=== PATIENT | male | born 1940 | race Caucasian/White ===

== ENCOUNTER 2019-08-07 16:35 | Inpatient (IN) | payer MEDICARE ==
[2019-08-07] MEDS ORDERED: ASPIRIN 81 MG PO STA (16:45)
[2019-08-07] MEDS ORDERED: NITROGLYCERIN OINT 1 INCH/GM PACKET TOPICAL STA (16:45)
--- NOTE | 2019-08-07 16:53 | ED ---
General Adult HPI - General Chief complaint: Chest Pain Stated complaint: chest pain Time Seen by Provider: 08/07/19 16:40 Source: patient, EMS, RN notes reviewed Mode of arrival: EMS Limitations: no limitations - History of Present Illness Initial comments: Patient is a pleasant 78-year-old male presenting to the emergency Department with complaints of chest discomfort. Onset of symptoms was around a week ago. Symptoms have been somewhat worsening since that time. Patient was sweaty today prior to arrival. Discomfort is worse with inspiration. No associated dyspnea or nausea. Patient did see his doctor beginning of the week who had concern for pleurisy. Patient has been fatigued. - Related Data Allergies Allergy/AdvReac Type Severity Reaction Status Date / Time No Known Allergies Allergy Verified 08/07/19 16:46 Review of Systems ROS Statement: Those systems with pertinent positive or pertinent negative responses have been documented in the HPI. ROS Other: All systems not noted in ROS Statement are negative. Constitutional: Denies: fever Eyes: Denies: eye pain ENT: Denies: ear pain Respiratory: Denies: cough, dyspnea Cardiovascular: Reports: chest pain. Denies: palpitations Endocrine: Reports: fatigue Gastrointestinal: Denies: abdominal pain Genitourinary: Denies: urgency Musculoskeletal: Denies: back pain Skin: Denies: rash Neurological: Denies: weakness Past Medical History Past Medical History: Diabetes Mellitus, GERD/Reflux, Hyperlipidemia History of Any Multi-Drug Resistant Organisms: None Reported Past Surgical History: Appendectomy, Tonsillectomy Additional Past Surgical History / Comment(s): carotid artery arthroscopy Past Psychological History: No Psychological Hx Reported Smoking Status: Never smoker Past Alcohol Use History: None Reported Past Drug Use History: None Reported General Exam Limitations: no limitations General appearance: alert, in no apparent distress Head exam: Present: normocephalic Eye exam: Present: normal appearance, PERRL Neck exam: Present: normal inspection Respiratory exam: Present: normal lung sounds bilaterally. Absent: chest wall tenderness Cardiovascular Exam: Present: regular rate, normal rhythm, systolic murmur Expanded Peripheral pulses: 2+: Radial (R), Radial (L), Posterior Tibialis (R), Posterior Tibialis (L), Dorsalis Pedis (R), Dorsalis Pedis (L) GI/Abdominal exam: Present: soft. Absent: tenderness Extremities exam: Present: normal inspection. Absent: pedal edema, calf tenderness Neurological exam: Present: alert Psychiatric exam: Present: normal affect, normal mood Skin exam: Present: normal color Course Vital Signs 08/07/19 08/07/19 16:47 17:51 Temperature 98 F Pulse Rate 97 86 Respiratory 16 16 Rate Blood Pressure 116/64 104/87 O2 Sat by Pulse 97 99 Oximetry EKG Findings - EKG Comments: EKG Findings:: Normal sinus rhythm 96. IL 132. QRS 92. QT 368. QTC 464. Normal axis. LVH criteria. No acute ST change. Medical Decision Making - Medical Decision Making Patient reevaluated and resting comfortably in bed. Patient and family updated on results and plan. Case was discussed in detail with Dr. Mathias, covering for Dr. Lara, who will admit. - Lab Data Result diagrams: 08/07/19 16:45 08/07/19 16:45 Lab Results 08/07/19 08/07/19 08/07/19 Range/Units 16:45 16:45 16:45 WBC 9.7 (3.8-10.6) k/uL RBC 3.82 L (4.30-5.90) m/uL Hgb 11.6 L (13.0-17.5) gm/dL Hct 35.9 L (39.0-53.0) % MCV 93.9 (80.0-100.0) fL MCH 30.3 (25.0-35.0) pg MCHC 32.3 (31.0-37.0) g/dL RDW 13.6 (11.5-15.5) % Plt Count 140 L (150-450) k/uL Neutrophils % 81 % Lymphocytes % 11 % Monocytes % 5 % Eosinophils % 1 % Basophils % 0 % Neutrophils # 7.8 H (1.3-7.7) k/uL Lymphocytes # 1.1 (1.0-4.8) k/uL Monocytes # 0.5 (0-1.0) k/uL Eosinophils # 0.1 (0-0.7) k/uL Basophils # 0.0 (0-0.2) k/uL PT 10.1 (9.0-12.0) sec INR 1.0 (<1.2) APTT 21.2 L (22.0-30.0) sec D-Dimer 1.11 H (<0.60) mg/L FEU Sodium 139 (137-145) mmol/L Potassium 4.2 (3.5-5.1) mmol/L Chloride 106 (98-107) mmol/L Carbon Dioxide 21 L (22-30) mmol/L Anion Gap 12 mmol/L BUN 28 H (9-20) mg/dL Creatinine 1.15 (0.66-1.25) mg/dL Est GFR (CKD-EPI)AfAm 71 (>60 ml/min/1.73 sqM) Est GFR (CKD-EPI)NonAf 61 (>60 ml/min/1.73 sqM) Glucose 170 H (74-99) mg/dL Calcium 9.1 (8.4-10.2) mg/dL Magnesium 1.5 L (1.6-2.3) mg/dL Total Bilirubin 0.5 (0.2-1.3) mg/dL AST 32 (17-59) U/L ALT 32 (4-49) U/L Alkaline Phosphatase 74 (38-126) U/L Troponin I (0.000-0.034) ng/mL Total Protein 7.1 (6.3-8.2) g/dL Albumin 4.0 (3.5-5.0) g/dL 08/07/19 Range/Units 16:45 WBC (3.8-10.6) k/uL RBC (4.30-5.90) m/uL Hgb (13.0-17.5) gm/dL Hct (39.0-53.0) % MCV (80.0-100.0) fL MCH (25.0-35.0) pg MCHC (31.0-37.0) g/dL RDW (11.5-15.5) % Plt Count (150-450) k/uL Neutrophils % % Lymphocytes % % Monocytes % % Eosinophils % % Basophils % % Neutrophils # (1.3-7.7) k/uL Lymphocytes # (1.0-4.8) k/uL Monocytes # (0-1.0) k/uL Eosinophils # (0-0.7) k/uL Basophils # (0-0.2) k/uL PT (9.0-12.0) sec INR (<1.2) APTT (22.0-30.0) sec D-Dimer (<0.60) mg/L FEU Sodium (137-145) mmol/L Potassium (3.5-5.1) mmol/L Chloride (98-107) mmol/L Carbon Dioxide (22-30) mmol/L Anion Gap mmol/L BUN (9-20) mg/dL Creatinine (0.66-1.25) mg/dL Est GFR (CKD-EPI)AfAm (>60 ml/min/1.73 sqM) Est GFR (CKD-EPI)NonAf (>60 ml/min/1.73 sqM) Glucose (74-99) mg/dL Calcium (8.4-10.2) mg/dL Magnesium (1.6-2.3) mg/dL Total Bilirubin (0.2-1.3) mg/dL AST (17-59) U/L ALT (4-49) U/L Alkaline Phosphatase (38-126) U/L Troponin I 0.046 H* (0.000-0.034) ng/mL Total Protein (6.3-8.2) g/dL Albumin (3.5-5.0) g/dL - Radiology Data Radiology results: report reviewed (Computed tomography scan of the chest negative for pulmonary embolism. There is mild right upper lobe pneumonia), image reviewed (Chest x-ray shows mild right upper lobe pneumonia) Disposition Clinical Impression: Chest pain, Pneumonia Disposition: [facility] Is patient prescribed a controlled substance at d/c from ED?: No Referrals: Noe Lara MD [Primary Care Provider] - 1-2 days Decision Time: 18:54
[2019-08-07 17:09] LABS: Basophils % (A) 0 %; Eosinophils # (A) 0.1 k/uL (0-0.7); Eosinophils % (A) 1 %; HCT 35.9 % (39.0-53.0); HGB 11.6 gm/dL (13.0-17.5); Lymphocytes # (A) 1.1 k/uL (1.0-4.8); Lymphocytes % (A) 11 %; MCH 30.3 pg (25.0-35.0); MCHC 32.3 g/dL (31.0-37.0); MCV 93.9 fL (80.0-100.0); Mean Platelet Volume 8.3; Monocytes # (A) 0.5 k/uL (0-1.0); Monocytes % (A) 5 %; Neutrophils # (A) 7.8 k/uL (1.3-7.7); Neutrophils % (A) 81 %; Platelet Count 140 k/uL (150-450); RBC 3.82 m/uL (4.30-5.90); RDW 13.6 % (11.5-15.5); WBC 9.7 k/uL (3.8-10.6)
[2019-08-07 17:22] LABS: Calcium 9.1 mg/dL (8.4-10.2); Magnesium 1.5 mg/dL (1.6-2.3); Potassium 4.2 mmol/L (3.5-5.1); Total Bilirubin 0.5 mg/dL (0.2-1.3); Total Protein 7.1 g/dL (6.3-8.2)
--- NOTE | 2019-08-07 17:24 | XR ---
EXAMINATION TYPE: XR chest 2V DATE OF EXAM: 08/07/2019 COMPARISON: NONE HISTORY: Chest pain TECHNIQUE: FINDINGS: Heart is normal. There is some patchy infiltrate in the right upper lobe. The other lung fi elds are clear. Mediastinum is normal. There are no hilar masses. Costophrenic angles are clear. Bony thorax is intact. IMPRESSION: Mild right upper lobe pneumonia. Normal heart.
[2019-08-07 17:35] LABS: Prothrombin Time 10.1 sec (9.0-12.0)
[2019-08-07 17:51] LABS: D-Dimer 1.11 mg/L FEU (<0.60); Partial Thromboplastin Time 21.2 sec (22.0-30.0)
--- NOTE | 2019-08-07 18:29 | CT ---
EXAMINATION TYPE: CT angio chest DATE OF EXAM: 08/07/2019 COMPARISON: None HISTORY: Chest pain with shortness of breath CT DLP: 619.6 mGycm Automated exposure control for dose reduction was used. CONTRAST: Performed with IV Contrast, patient injected with 100 mL of Isovue 370. Multiple axial sections were obtained from the thoracic inlet to the diaphragm with IV contrast and 3 -D post processed images. There is some patchy airspace and interstitial infiltrate in the posterior right upper lobe and also the superior segment right lower lobe. There is some mild atelectasis right lung base. There is eleva garima right diaphragm. Heart size is normal. There is no pericardial effusion. There is no pleural effusion. There is aneurysm of the ascending aorta measures 4.6 cm. There is no dissection. There is normal contrast opacification of the pulmonary arteries. There are no filling defects. Thoracic spine is intact. I see no focal bony destructive process. The upper abdominal soft tissues a ppear intact. IMPRESSION: There is some patchy pneumonia in the right lung. There is atelectasis at the right lung base and navya vated right diaphragm. No evidence of pulmonary embolism. Thoracic aortic aneurysm.
[2019-08-07] MEDS ORDERED: NITROGLYCERIN SL TABS 0.4 MG TAB SUBLINGUAL PRN (18:55)
[2019-08-07] MEDS ORDERED: IPRATROPIUM-ALBUTEROL 3 ML NEB INHALATION PRN (18:55)
[2019-08-07] MEDS ORDERED: AZITHROMYCIN 500 MG in SODIUM CHLORIDE 0.9% 250 ML IVPB STA (18:55)
[2019-08-07] MEDS ORDERED: PNEUMONIA PROTOCOL UTILIZED 1 EACH MISC PO PRN (18:55)
[2019-08-08] MEDS: NITROGLYCERIN OINT 1 INCH/GM PACKET TOPICAL SCH ×5 (01:31→22:20)
[2019-08-08 03:36] LABS: Glucose,Whole Blood 62 mg/dL (75-99)
[2019-08-08 04:55] LABS: Glucose,Whole Blood 109 mg/dL (75-99)
[2019-08-08] MEDS: SODIUM CHLORIDE 0.9% 1,000 ML IV SCH ×3 (05:42→18:32)
[2019-08-08 06:25] LABS: Cholesterol 170 mg/dL (<200); HDL Cholesterol 60 mg/dL (40-60); LDL Cholesterol,Calculated 93 mg/dL (0-99); Triglycerides 85 mg/dL (<150)
--- NOTE | 2019-08-08 07:49 | XR ---
EXAMINATION TYPE: XR chest 2V DATE OF EXAM: 08/08/2019 COMPARISON: 08/07/2019 TECHNIQUE: PA and lateral views submitted. HISTORY: Follow-up pneumonia FINDINGS: There persists patchy asymmetric perihilar density. Right hemidiaphragm elevated with no pleural effu jarocho or pneumothorax. Heart size stable. Hypertrophic change of the AC joints. Biapical pleural thick ening. Persistent coarsened interstitium. Hypertrophic and degenerative change spine. IMPRESSION: 1. Persistent coarsened interstitium with right perihilar asymmetric infiltrate correlate for pneumon ia with interstitial pneumonitis or chronic interstitial lung disease. 2. Elevated right hemidiaphragm could be seen with phrenic nerve paresis
[2019-08-08] MEDS: ASPIRIN 325 MG TAB PO SCH (09:53)
[2019-08-08 09:56] LABS: Glucose,Whole Blood 75 mg/dL (75-99)
--- NOTE | 2019-08-08 12:44 | CONS ---
CONSULTATION CHIEF COMPLAINT: Chest pain. Domenico is a 78-year-old gentleman with history of hypertension, diabetes, dyslipidemia, who presented to hospital with chest pain. The patient states that for the last several days, he has been having fever, episodes of sweatiness and chest pain that got worse with deep breathing. He was seen by Dr. Lara in the outpatient setting, who told him that he has pleurisy. Over the last 2 days, patient has been having these episodes of dizziness and at [facility] he had episode of diaphoresis/nera syncope and came to the ER and is being admitted. The patient denies exertional chest pain. Does not have significant shortness of breath, leg edema, PND or orthopnea. At the time of my evaluation, he appears comfortable at rest and is free of significant symptoms. An EKG shows sinus rhythm without significant ST-T wave changes. LABS: Show that the troponin is elevated at 0.3, 0.3 and 0.2 and is labs show that his creatinine is 1.5, potassium is 4.2, and the white cell count is normal. Hemoglobin is 7.6, platelet count is 140. Chest CTA showed patchy pneumonia over the right lung and atelectasis of the right lung with thoracic aortic aneurysm measuring 4.6 cm. PAST MEDICAL HISTORY: Significant for hypertension, diabetes, dyslipidemia. CURRENT MEDICATIONS: Include Protonix, Pepcid, Lipitor, Zestril, glipizide, metformin, aspirin. ALLERGIES: There are no known drug allergies. FAMILY HISTORY: Negative for premature coronary artery disease. SOCIAL HISTORY: Negative for current smoking, EtOH abuse, or drug abuse. REVIEW OF SYSTEMS: HEENT is unremarkable. CARDIAC: As described above. RESPIRATORY: As described above. GI negative. GENITOURINARY negative. ALLERGY: None. SKIN negative. MUSCULOSKELETAL negative. DERM negative. CONSTITUTIONAL significant for episodes of sweating and feeling unwell. Rest of the system review is not relevant. PHYSICAL EXAMINATION: On exam, patient is afebrile. Heart rate is 73 beats per minute. Blood pressure is 147/75, O2 saturation is 98% on room air. There is no jugular venous distention. Chest exam does not reveal any crackles or rhonchi. Heart exam reveals first and second heart sounds. No gallop. ESM in aortic area No rub. Abdomen is soft, nontender. Exam of extremities did not reveal any edema. Peripheral pulses are felt. ASSESSMENT: 1. Acute non ST-segment elevation myocardial infarction. 2. Aortic stenosis 3. Hypertension. 4. Diabetes. PLAN: I will obtain a 2D echo to evaluate his LV function and to rule out significant and any wall motion abnormalities. He needs evaluation for underlying ischemic heart disease and valvular heart disease once the respiratory issues resolve. This may take the form of cardiac catheterization and CARLOS. RENETTA / NEVIN: [id number] / BART
--- NOTE | 2019-08-08 12:51 | P.HPIM ---
<Noe Lara - Last Filed: 08/09/19 09:46> Medications and Allergies Home Medications Medication Instructions Recorded Confirmed Type Aspirin EC [Ecotrin Low Dose] 81 mg PO DAILY 08/07/19 08/07/19 History Atorvastatin [Lipitor] 10 mg PO HS 08/07/19 08/07/19 History Famotidine [Pepcid] 20 mg PO HS 08/07/19 08/07/19 History Insulin Glargine,Hum.rec.anlog 40 units INJ QAM 08/07/19 08/07/19 History [Toujeo Solostar] Lisinopril [Zestril] 2.5 mg PO DAILY 08/07/19 08/07/19 History Pantoprazole [Protonix] 40 mg PO DAILY 08/07/19 08/07/19 History glipiZIDE/METFORMIN HCL 1 tab PO BID 08/07/19 08/07/19 History [glipiZIDE/METFORMIN HCL 5-500 mg] Allergies Allergy/AdvReac Type Severity Reaction Status Date / Time No Known Allergies Allergy Verified 08/07/19 18:57 Physical Exam Vitals: Vital Signs Temp Pulse Pulse Resp BP BP Pulse Ox 08/09/19 08:00 97.8 F 83 16 155/70 94 L 08/09/19 04:00 78 18 148/72 95 08/08/19 23:16 97.8 F 98 18 155/74 93 L 08/08/19 18:27 98.1 F 82 18 140/72 98 08/08/19 15:00 76 15 111/54 94 L 08/08/19 14:14 98.1 F 71 18 111/54 98 08/08/19 14:00 75 17 117/60 96 08/08/19 13:00 72 16 118/67 97 08/08/19 12:00 67 17 120/67 95 08/08/19 11:00 70 16 139/65 95 08/08/19 10:00 75 16 137/66 97 Intake and Output 08/08/19 08/09/19 08/09/19 22:59 06:59 14:59 Other: Voiding Method Toilet # Voids 1 Weight 101.2 kg - Cardiovascular Abnormal Heart Sounds: systolic murmur, diastolic murmur, S3 Gallop, click Results CBC & Chem 7: 08/09/19 07:00 06/30/20 07:00 Labs: Abnormal Lab Results - Last 24 Hours (Table) 08/08/19 08/09/19 08/09/19 Range/Units 20:22 06:19 07:00 RBC 3.49 L (4.30-5.90) m/uL Hgb 10.6 L (13.0-17.5) gm/dL Hct 32.8 L (39.0-53.0) % Plt Count 140 L (150-450) k/uL Glucose (74-99) mg/dL POC Glucose (mg/dL) 215 H 109 H (75-99) mg/dL Albumin (3.5-5.0) g/dL 08/09/19 Range/Units 07:00 RBC (4.30-5.90) m/uL Hgb (13.0-17.5) gm/dL Hct (39.0-53.0) % Plt Count (150-450) k/uL Glucose 103 H (74-99) mg/dL POC Glucose (mg/dL) (75-99) mg/dL Albumin 3.2 L (3.5-5.0) g/dL Microbiology - Last 24 Hours (Table) 08/07/19 19:45 Blood Culture - Preliminary Blood No Growth after 24 hours Assessment and Plan Plan: Severe valvular heart disease: Combination of moderate to severe aortic stenosis and regurgitation with gradient of 72 mmHg with mild mitral regurgitation as well. Patient will be going for heart cath and possible transesophageal echocardiogram for possible need for either open heart surgery with valve placement or angioplasty with stent and possible need for TAVR. <Mercy Gomez - Last Filed: 08/10/19 12:51> History of Present Illness H&P Date: 08/08/19 Chief Complaint: chest pain This is a 78-year-old male, patient of Dr. Lara, with a medical history of diabetes, GERD, and Hyperlipidemia. Patient reports over the last week he has been feeling a lot more fatigued, run down, and running a low grade fever. He was evaluated as outpatient and diagnosed with pleurisy. He then developed episodes of dizziness with worsening symptoms. [facility] and became diaphoretic with chest discomfort, EMS was called and patient was transferred to the hospital. While in the emergency department chest x-ray was performed that showed mild right upper lobe pneumonia. D.Dimer was elevated at 1.11, CTA was then ordered that showed patchy pneumonia in the right lung, atelectasis, thoracic aortic aneurysm, elevated right diaphragm, no evidence of pulmonary embolism. Troponin's have been elevated 0.046, 0.322, 0.397, 0.297. EKG showed sinus rhythm, without ST wave changes. He was started on Azithromycin 500mg along with Duonebs. Cardiology has been consulted, may need cardiac cath, will obtain an electrocardiogram. Vital signs are stable blood pressure 103/62, heart rate of 67, 98% on room air. He currently denies any cough, shortness of breath, palpitations, or chest pain. Review of Systems Constitutional: Reports fatigue, Reports malaise, Denies chills, Denies fever, Denies night sweats, Denies poor appetite, Denies weakness Eyes: denies decreased vision, denies diplopia, denies discharge, denies itching, denies pain, denies loss of vision Ears: deny: ear discharge, earache, tinnitus Ears, nose, mouth and throat: Denies dysphagia, Denies headache, Denies hoarsene ss, Denies nasal congestion, Denies nasal discharge, Denies sinus pain, Denies sinus pressure, Denies sore throat Cardiovascular: Reports chest pain, Denies dyspnea on exertion, Denies edema, Denies irregular heart beat, Denies leg edema, Denies lightheadedness, Denies orthopnea, Denies palpitations, Denies paroxysmal nocturnal dyspnea, Denies shortness of breath, Denies syncope Respiratory: Reports pain on inspiration, Reports pleurisy, Denies congestion, Denies cough, Denies dyspnea, Denies excessive sputum, Denies respiratory infections, Denies snoring, Denies wheezing Gastrointestinal: Denies abdominal pain, Denies constipation, Denies diarrhea, Denies dyspepsia, Denies heartburn, Denies indigestion, Denies loss of appetite, Denies melena, Denies nausea, Denies vomiting Genitourinary: Denies dysuria, Denies flank pain, Denies hematuria, Denies incontinence, Denies urinary frequency, Denies urinary retention Musculoskeletal: Denies atrophy, Denies fractures, Denies frequent falls, Denies gait dysfunction, Denies leg numbness/tingling, Denies low back pain, Denies muscle weakness, Denies neck pain, Denies neck stiffness Integumentary: Denies color changes, Denies dryness, Denies growths, Denies lesions, Denies rash, Denies unusual bruising Neurological: Denies aphasia, Denies balance difficulties, Denies confusion, Denies convulsions, Denies gait dysfunction, Denies headaches, Denies numbness, Denies paralysis, Denies seizures, Denies sensory deficit, Denies syncope, Denies tingling, Denies tremors, Denies vertigo, Denies weakness, Denies visual changes Psychiatric: Denies anxiety, Denies confusion, Denies depression, Denies difficulty concentrating, Denies insomnia, Denies irritability Endocrine: Denies excessive thirst, Denies fatigue, Denies high blood sugars, Denies low blood sugars, Denies palpitations Hematologic/Lymphatic: Denies easy bleeding, Denies lymphadenopathy, Denies lymphedema Past Medical History Past Medical History: Diabetes Mellitus, GERD/Reflux, Hyperlipidemia History of Any Multi-Drug Resistant Organisms: None Reported Past Surgical History: Appendectomy, Tonsillectomy Additional Past Surgical History / Comment(s): carotid artery arthroscopy Past Psychological History: No Psychological Hx Reported Smoking Status: Never smoker Past Alcohol Use History: None Reported Past Drug Use History: None Reported - Past Family History Father Family Medical History: Myocardial Infarction ([place]) Additional Family Medical History / Comment(s): Father of a [place] at the age of 56yrs. Mother Family Medical History: Diabetes Mellitus Physical Exam Vitals: Vital Signs Temp Pulse Resp BP Pulse Ox 08/08/19 08:53 98.0 F 73 18 147/75 98 08/08/19 06:15 72 18 146/69 97 08/08/19 01:29 98.0 F 70 16 104/62 95 08/07/19 21:49 80 16 104/60 100 08/07/19 19:30 77 22 113/64 98 08/07/19 18:30 84 20 104/65 98 08/07/19 18:00 89 21 111/63 97 08/07/19 17:51 86 16 104/87 99 08/07/19 16:47 98 F 97 16 116/64 97 08/07/19 16:40 20 116/64 98 Intake and Output 08/07/19 08/08/19 08/08/19 22:59 06:59 14:59 Other: Weight 100.335 kg - Constitutional General appearance: cooperative, no acute distress - EENT Eyes: EOMI, PERRLA, normal appearance ENT: hearing grossly normal, normal oropharynx - Neck Neck: no lymphadenopathy, normal ROM, no rigidity, no stridor, no thyromegaly Thyroid: bilateral: normal size, negative: enlarged, nodule - Respiratory Respiratory: bilateral: CTA, negative: diminished, dullness, rales, rhonchi, wheezing - Cardiovascular Rhythm: regular Heart sounds: normal: S1, S2 - Gastrointestinal General gastrointestinal: no distended, no hepatomegaly, normal bowel sounds, no organomegaly, soft, no tenderness - Neurologic Neurologic: CNII-XII intact - Musculoskeletal Musculoskeletal: gait normal, generalized weakness, strength equal bilaterally, no right sided weakness, no left sided weakness - Psychiatric Psychiatric: A&O x's 3, appropriate affect, intact judgment & insight Results CBC & Chem 7: 08/10/19 06:46 08/10/19 06:46 Labs: Abnormal Lab Results - Last 24 Hours (Table) 08/07/19 08/07/19 08/07/19 Range/Units 16:45 16:45 16:45 RBC 3.82 L (4.30-5.90) m/uL Hgb 11.6 L (13.0-17.5) gm/dL Hct 35.9 L (39.0-53.0) % Plt Count 140 L (150-450) k/uL Neutrophils # 7.8 H (1.3-7.7) k/uL APTT 21.2 L (22.0-30.0) sec D-Dimer 1.11 H (<0.60) mg/L FEU Carbon Dioxide 21 L (22-30) mmol/L BUN 28 H (9-20) mg/dL Glucose 170 H (74-99) mg/dL POC Glucose (mg/dL) (75-99) mg/dL Magnesium 1.5 L (1.6-2.3) mg/dL Troponin I (0.000-0.034) ng/mL 08/07/19 08/07/19 08/07/19 Range/Units 16:45 19:26 22:38 RBC (4.30-5.90) m/uL Hgb (13.0-17.5) gm/dL Hct (39.0-53.0) % Plt Count (150-450) k/uL Neutrophils # (1.3-7.7) k/uL APTT (22.0-30.0) sec D-Dimer (<0.60) mg/L FEU Carbon Dioxide (22-30) mmol/L BUN (9-20) mg/dL Glucose (74-99) mg/dL POC Glucose (mg/dL) (75-99) mg/dL Magnesium (1.6-2.3) mg/dL Troponin I 0.046 H* 0.322 H* 0.397 H* (0.000-0.034) ng/mL 08/08/19 08/08/19 08/08/19 Range/Units 03:34 04:53 05:57 RBC (4.30-5.90) m/uL Hgb (13.0-17.5) gm/dL Hct (39.0-53.0) % Plt Count (150-450) k/uL Neutrophils # (1.3-7.7) k/uL APTT (22.0-30.0) sec D-Dimer (<0.60) mg/L FEU Carbon Dioxide (22-30) mmol/L BUN (9-20) mg/dL Glucose (74-99) mg/dL POC Glucose (mg/dL) 62 L 109 H (75-99) mg/dL Magnesium (1.6-2.3) mg/dL Troponin I 0.297 H* (0.000-0.034) ng/mL Assessment and Plan Plan: 1. Non-ST myocardial infarction. Serial troponins are elevated, cardiology consulted, may need cardiac catheterization, will obtain echocardiogram, sublingual nitro as needed, along with Nitro paste, and ASA 325mg daily. 2. Unstable angina. Cardiology on consult, continue Nitropaste along with sublingual nitro as needed and aspirin 3. Pneumonia. Azithromycin 500 mg daily, along with ceftriaxone and DuoNeb's, blood cultures obtained. 4. Diabetes mellitus. Will hold Metformin, continue on Toujeo 40 units QAM 5. GERD. Continue on pantoprazole 40 mg daily along with famotidine 20 mg at at bedtime 6. Hyperlipidemia. Continue on Lipitor 10 mg at at bedtime. 7. DVT prophylaxis. SubQ Heparin 8. GI prophylaxix with pantoprazole 40mg daily The above impression and plan of care have been discussed and directed by signing physician. Mercy Gomez nurse practitioner acting as scribe for signing physician.
[2019-08-08 20:23] LABS: Glucose,Whole Blood 215 mg/dL (75-99)
[2019-08-08] MEDS: FAMOTIDINE 20 MG TAB PO SCH (20:25)
[2019-08-08] MEDS: ATORVASTATIN 10 MG TAB PO SCH (20:25)
[2019-08-08] MEDS: AZITHROMYCIN 500 MG TAB PO SCH (20:25)
[2019-08-08] MEDS: HEPARIN SODIUM,PORCINE 5,000 UNIT/ML 1 ML VIAL SQ SCH (20:26)
[2019-08-09] MEDS: SODIUM CHLORIDE 0.9% 1,000 ML IV SCH ×3 (02:13→20:44)
[2019-08-09] MEDS: NITROGLYCERIN OINT 1 INCH/GM PACKET TOPICAL SCH ×4 (04:02→22:14)
[2019-08-09 06:20] LABS: Glucose,Whole Blood 109 mg/dL (75-99)
[2019-08-09] MEDS: PANTOPRAZOLE 40 MG TABLET PO SCH (06:49)
[2019-08-09 07:36] LABS: Basophils % (A) 0 %; Eosinophils # (A) 0.2 k/uL (0-0.7); Eosinophils % (A) 3 %; HCT 32.8 % (39.0-53.0); HGB 10.6 gm/dL (13.0-17.5); Lymphocytes # (A) 1.1 k/uL (1.0-4.8); Lymphocytes % (A) 17 %; MCH 30.5 pg (25.0-35.0); MCHC 32.5 g/dL (31.0-37.0); MCV 93.8 fL (80.0-100.0); Mean Platelet Volume 8.6; Monocytes # (A) 0.5 k/uL (0-1.0); Monocytes % (A) 7 %; Neutrophils # (A) 4.6 k/uL (1.3-7.7); Neutrophils % (A) 71 %; Platelet Count 140 k/uL (150-450); RBC 3.49 m/uL (4.30-5.90); RDW 13.6 % (11.5-15.5); WBC 6.5 k/uL (3.8-10.6)
[2019-08-09 07:49] LABS: ALT 26 U/L (4-49); AST 33 U/L (17-59); African American GFR (CKD) >90 (>60 ml/min/1.73 sqM); Albumin 3.2 g/dL (3.5-5.0); Alkaline Phosphatase 79 U/L (38-126); Anion Gap 5 mmol/L; Blood Urea Nitrogen 16 mg/dL (9-20); Calcium 8.8 mg/dL (8.4-10.2); Carbon Dioxide 27 mmol/L (22-30); Chloride 105 mmol/L (98-107); Glucose 103 mg/dL (74-99); Non-African American GFR(CKD) 83 (>60 ml/min/1.73 sqM); Potassium 4.5 mmol/L (3.5-5.1); Sodium 137 mmol/L (137-145); Total Bilirubin 0.5 mg/dL (0.2-1.3); Total Protein 6.3 g/dL (6.3-8.2)
--- NOTE | 2019-08-09 09:00 | ECHOF ---
Referral Reason:Chest pain MEASUREMENTS -------- HEIGHT: 172.7 cm WEIGHT: 100.2 kg BP: 146/69 RVIDd: 3.3 cm (< 3.3) IVSd: 1.6 cm (0.6 - 1.1) LVIDd: 3.8 cm (3.9 - 5.3) LVPWd: 1.6 cm (0.6 - 1.1) IVSs: 2.0 cm LVIDs: 2.8 cm LVPWs: 2.1 cm LA Diam: 3.2 cm (2.7 - 3.8) LAESV Index (A-L): 36.24 ml/m Ao Diam: 3.9 cm (2.0 - 3.7) AV Cusp: 1.4 cm (1.5 - 2.6) MV EXCURSION: 9.219 mm (> 18.000) MV EF SLOPE: 45 mm/s (70 - 150) EPSS: 0.9 cm MV E Claude: 1.63 m/s MV DecT: 136 ms MV A Claude: 1.04 m/s MV E/A Ratio: 1.57 AV maxP.30 mmHg AV meanP.19 mmHg AR PHT: 426 ms RAP: 15.00 mmHg RVSP: 58.77 mmHg FINDINGS -------- Sinus rhythm. This was a technically adequate study. The left ventricular size is normal. There is moderate concentric left ventricular hypertrophy. O verall left ventricular systolic function is normal with, an EF between 60 - 65 %. The right ventricle is mildly enlarged. LA is moderately dilated 34-39 ml/m2 The right atrium is normal in size. Interatrial and interventricular septum intact. There is moderate aortic valve sclerosis. There is jgfrvtby-cd-rrzrds aortic regurgitation. There is severe aortic stenosis present. Peak/mean gradient across the Aortic Valve is 71.30mmHg / 42.19 mmHg. The mitral valve leaflets are mildly thickened. Mild mitral annular calcification present. Modera te mitral regurgitation is present. Mild tricuspid regurgitation present. There is severe pulmonary hypertension. The right ventricul ar systolic pressure, as measured by Doppler, is 58.77mmHg. Trace/mild (physiologic) pulmonic regurgitation. The aortic root is dilated measuring 3.9cm. Normal inferior vena cava with less than 50% inspiratory collapse consistent with estimated right atr ial pressure of 15 mmHg. There is no pericardial effusion. CONCLUSIONS -------- 1. Sinus rhythm. 2. This was a technically adequate study. 3. The left ventricular size is normal. 4. There is moderate concentric left ventricular hypertrophy. 5. Overall left ventricular systolic function is normal with, an EF between 60 - 65 %. 6. The right ventricle is mildly enlarged. 7. LA is moderately dilated 34-39 ml/m2 8. The right atrium is normal in size. 9. Interatrial and interventricular septum intact. 10. There is moderate aortic valve sclerosis. 11. There is ccbqmoia-az-jydpzi aortic regurgitation. 12. There is severe aortic stenosis present. 13. Peak/mean gradient across the Aortic Valve is 71.30mmHg / 42.19mmHg. 14. The mitral valve leaflets are mildly thickened. 15. Mild mitral annular calcification present. 16. Moderate mitral regurgitation is present. 17. Mild tricuspid regurgitation present. 18. There is severe pulmonary hypertension. 19. The right ventricular systolic pressure, as measured by Doppler, is 58.77mmHg. 20. Trace/mild (physiologic) pulmonic regurgitation. 21. The aortic root is dilated measuring 3.9cm. 22. Normal inferior vena cava with less than 50% inspiratory collapse consistent with estimated right atrial pressure of 15 mmHg. 23. There is no pericardial effusion. PRINCIPAL CYBER ENGINEER: Mable Underwood RDCS
[2019-08-09] MEDS: LISINOPRIL 2.5 MG TAB PO SCH (09:18)
[2019-08-09] MEDS: HEPARIN SODIUM,PORCINE 5,000 UNIT/ML 1 ML VIAL SQ SCH ×2 (09:18→20:41)
[2019-08-09] MEDS: INSULIN DETEMIR (LEVEMIR) 100 UNIT/ML SYR SQ SCH (09:18)
[2019-08-09] MEDS: ASPIRIN 325 MG TAB PO SCH (09:18)
--- NOTE | 2019-08-09 11:45 | P.PN ---
Subjective Progress Note Date: 08/09/19 This is a pleasant 78-year-old gentleman with documented history of diabetes, hyperlipidemia, GERD, who presented to the hospital with symptoms of fatigue, low-grade fever. Patient was seen in consultation by Dr. Brooks because of abnormality in troponin. His chest x-ray did show a mid right upper lobe pneumonia. Patient denies any cough. His white blood cell count has been normal. He has been afebrile here. He denies any chest discomfort, his breathing today is stable. An echocardiogram with Doppler study was performed which revealed a normal left ventricular systolic function, moderate to severe aortic regurgitation, severe aortic stenosis, the peak/mean gradient across the aortic valve is 71/42. Moderate mitral regurgitation, severe pulmonary hypertension. Blood pressure 110/60 with a heart rate in the 80s, 97% on 2 L of oxygen. White blood cell count is normal, hemoglobin 10.6, platelet count 140, sodium 137, potassium 4.5, BUN 16, creatinine 0.8. Objective - Vital Signs Vital signs: Vital Signs Temp 97.8 F 08/09/19 08:00 Pulse 83 08/09/19 08:00 Resp 16 08/09/19 08:00 BP 155/70 08/09/19 08:00 Pulse Ox 94 L 08/09/19 08:00 Intake & Output 08/08/19 08/09/19 08/09/19 18:59 06:59 18:59 Intake Total 250 Balance 250 Weight 100.335 kg 101.2 kg Intake: Oral 250 Other: Voiding Method Toilet Toilet # Voids 1 3 - Exam PHYSICAL EXAMINATION: GENERAL: 78-year-old gentleman in no acute distress at the time of my exam HEENT: Head is atraumatic, normocephalic. Pupils equal, round. Sclera anicte alyssia. Conjunctiva are clear. Mucous membranes of the mouth are moist. Neck is supple. There is no elevated jugular venous pressure. No carotid bruit is heard. HEART EXAMINATION: Heart S1 S2 1 systolic murmur is heard across the precordium and up into the neck. CHEST EXAMINATION: Lungs are clear to auscultation and precussion. No chest wall tenderness is noted on palpation or with deep breathing. ABDOMEN: Soft, nontender. Bowel sounds are heard. No organomegaly noted. EXTREMITIES: 2+ peripheral pulses with no evidence of peripheral edema and no calf tenderness noted. NEUROLOGIC patient is awake, alert and oriented 3. . - Labs CBC & Chem 7: 08/09/19 07:00 08/09/19 07:00 Labs: Abnormal Lab Results - Last 24 Hours (Table) 08/08/19 08/09/19 08/09/19 Range/Units 20:22 06:19 07:00 RBC 3.49 L (4.30-5.90) m/uL Hgb 10.6 L (13.0-17.5) gm/dL Hct 32.8 L (39.0-53.0) % Plt Count 140 L (150-450) k/uL Glucose (74-99) mg/dL POC Glucose (mg/dL) 215 H 109 H (75-99) mg/dL Albumin (3.5-5.0) g/dL 08/09/19 Range/Units 07:00 RBC (4.30-5.90) m/uL Hgb (13.0-17.5) gm/dL Hct (39.0-53.0) % Plt Count (150-450) k/uL Glucose 103 H (74-99) mg/dL POC Glucose (mg/dL) (75-99) mg/dL Albumin 3.2 L (3.5-5.0) g/dL Microbiology - Last 24 Hours (Table) 08/07/19 19:45 Blood Culture - Preliminary Blood No Growth after 24 hours Assessment and Plan Plan: Assessment and plan #1 non-ST elevation myocardial infarction #2 valvular heart disease with evidence of severe aortic stenosis, moderate to severe AI, and moderate MR severe pulmonary hypertension #3 pneumonia #4 diabetes #5 hyperlipidemia #6 GERD Plan Patient will be scheduled tomorrow to undergo a CARLOS as well as cardiac catheterization, the risks and the benefits were explained to the patient in detail and he is willing to proceed. This will be performed by Dr. Brooks and further recommendations will be made based on those findings. DNP note has been reviewed, I agree with a documented findings and plan of care. Patient was seen and examined.
[2019-08-09 11:48] LABS: Glucose,Whole Blood 159 mg/dL (75-99)
--- NOTE | 2019-08-09 12:54 | P.PN ---
Subjective Progress Note Date: 08/09/1908/07. This is a 78-year-old male, patient of Dr. Lara, with a medical history of diabetes, GERD, and Hyperlipidemia. Patient reports over the last week he has been feeling a lot more fatigued, run down, and running a low grade fever. He was evaluated as outpatient and diagnosed with pleurisy. He then developed episodes of dizziness with worsening symptoms. He went to [place] yesterday and became diaphoretic with chest discomfort, EMS was called and patient was transferred to the hospital. While in the emergency department chest x-ray was performed that showed mild right upper lobe pneumonia. D.Dimer was elevated at 1.11, CTA was then ordered that showed patchy pneumonia in the right lung, atelectasis, thoracic aortic aneurysm, elevated right diaphragm, no evidence of pulmonary embolism. Troponin's have been elevated 0.046, 0.322, 0.397, 0.297. EKG showed sinus rhythm, without ST wave changes. He was started on Azithromycin 500mg along with Duonebs. Cardiology has been consulted, may need cardiac cath, will obtain an electrocardiogram. Vital signs are stable blood pressure 103/62, heart rate of 67, 98% on room air. He currently denies any cough, shortness of breath, palpitations, or chest pain. 08/08. Patient is evaluated at bedside today. He is resting in bed. Per cardiology recommendations, cardiac catheterization is sill on hold pending improvement of pneumonia of the right lung. Patient is being treated with oral azithromycin, IV ceftriaxone, and Duoneb treatments as needed. Echocardiogram completed yesterday reveals an EF of 60-65%, moderate concentric left ventric ular hypertrophy, mildly enlarged right ventricle, left atrium moderately dilated, moderate aortic valve sclerosis, [id number]-[id number] aortic regurgitation, severe aortic stenosis, moderate mitral regurgitation, mild tricuspid regurgitation, severe pulmonary hypertension, trace pulmonic regurgitation, peak/mean gradient across the aortic valve is 71.30mmHg/42.19 mmHg, and mildly thickened mitral valve leafs. Plan is to tentatively schedule patient for a cardiac catheterization and CARLOS tomorrow. Vital signs today are stable 97.9, remains afebrile, HR-86, BP-131/61, RR-16. Labs today include, hgb of 10.6, down from 11.6, continue on Subcutaneous heparin. Continue with accuchecks, patient maintained on levemir 40 units every monrning. Objective - Vital Signs Vital signs: Vital Signs Temp 97.9 F 08/09/19 11:56 Pulse 86 08/09/19 11:56 Resp 16 08/09/19 11:56 BP 131/61 08/09/19 11:56 Pulse Ox 94 L 08/09/19 11:56 Intake & Output 08/08/19 08/09/19 08/09/19 18:59 06:59 18:59 Intake Total 250 Balance 250 Weight 100.335 kg 101.2 kg Intake: Oral 250 Other: Voiding Method Toilet Toilet # Voids 1 3 - Exam - Constitutional General appearance: cooperative, no acute distress - EENT Eyes: EOMI, PERRLA, normal appearance ENT: hearing grossly normal, normal oropharynx - Neck Neck: no lymphadenopathy, normal ROM, no rigidity, no stridor, no thyromegaly Thyroid: bilateral: normal size, negative: enlarged, nodule - Respiratory Respiratory: bilateral: CTA, negative: diminished, dullness, rales, rhonchi, wheezing - Cardiovascular Rhythm: regular Heart sounds: normal: S1, S2, murmur - Gastrointestinal General gastrointestinal: no distended, no hepatomegaly, normal bowel sounds, no organomegaly, soft, no tenderness - Neurologic Neurologic: CNII-XII intact - Musculoskeletal Musculoskeletal: gait normal, generalized weakness, strength equal bilaterally, no right sided weakness, no left sided weakness - Psychiatric Psychiatric: A&O x's 3, appropriate affect, intact judgment & insight - Labs CBC & Chem 7: 08/10/19 06:46 08/10/19 06:46 Labs: Abnormal Lab Results - Last 24 Hours (Table) 08/08/19 08/09/19 08/09/19 Range/Units 20:22 06:19 07:00 RBC 3.49 L (4.30-5.90) m/uL Hgb 10.6 L (13.0-17.5) gm/dL Hct 32.8 L (39.0-53.0) % Plt Count 140 L (150-450) k/uL Glucose (74-99) mg/dL POC Glucose (mg/dL) 215 H 109 H (75-99) mg/dL Albumin (3.5-5.0) g/dL 08/09/19 08/09/19 Range/Units 07:00 11:36 RBC (4.30-5.90) m/uL Hgb (13.0-17.5) gm/dL Hct (39.0-53.0) % Plt Count (150-450) k/uL Glucose 103 H (74-99) mg/dL POC Glucose (mg/dL) 159 H (75-99) mg/dL Albumin 3.2 L (3.5-5.0) g/dL Microbiology - Last 24 Hours (Table) 08/07/19 19:45 Blood Culture - Preliminary Blood No Growth after 24 hours Assessment and Plan Plan: Assessment and Plan Plan: 1. Non-ST myocardial infarction. Serial troponins are elevated, cardiology consulted, sublingual nitro as needed, along with Nitro paste, and ASA 325mg daily, Echo completed; cardiac catheterization and CARLOS scheduled for tomorrow 2. Unstable angina. Cardiology on consult, continue Nitropaste along with sublingual nitro as needed and aspirin 3. Pneumonia. Azithromycin 500 mg daily, along with ceftriaxone and DuoNeb's, blood cultures obtained. 4. Diabetes mellitus. Will hold Metformin, continue on Levemir 40 units QAM 5. GERD. Continue on pantoprazole 40 mg daily along with famotidine 20 mg at at bedtime 6. Hyperlipidemia. Continue on Lipitor 10 mg at at bedtime. 7. DVT prophylaxis. SubQ Heparin 8. GI prophylaxix with pantoprazole 40mg daily 9. severe aortic stenosis, will plan for cardiac cath tomorrow along with CARLOS, may need TAVR The above impression and plan of care have been discussed and directed by signing physician. Mercy Gomez nurse practitioner acting as scribe for signing physician.
[2019-08-09 17:00] LABS: Glucose,Whole Blood 190 mg/dL (75-99)
[2019-08-09 20:16] LABS: Glucose,Whole Blood 137 mg/dL (75-99)
[2019-08-09] MEDS: FAMOTIDINE 20 MG TAB PO SCH (20:41)
[2019-08-09] MEDS: AZITHROMYCIN 500 MG TAB PO SCH (20:41)
[2019-08-09] MEDS: ATORVASTATIN 10 MG TAB PO SCH (20:41)
[2019-08-10] MEDS: LISINOPRIL 2.5 MG TAB PO SCH (05:12)
[2019-08-10] MEDS: NITROGLYCERIN OINT 1 INCH/GM PACKET TOPICAL SCH ×3 (05:12→18:31)
[2019-08-10] MEDS: PANTOPRAZOLE 40 MG TABLET PO SCH (05:12)
[2019-08-10] MEDS: SODIUM CHLORIDE 0.9% 1,000 ML IV SCH (05:12)
[2019-08-10] MEDS: ASPIRIN 325 MG TAB PO SCH (05:13)
[2019-08-10] MEDS ORDERED: ASPIRIN 325 MG TAB PO ONE (06:00)
[2019-08-10] MEDS ORDERED: NITROGLYCERIN SL TABS 0.4 MG TAB SUBLINGUAL PRN (06:00)
[2019-08-10] MEDS ORDERED: ALPRAZolam 0.5 MG TAB PO PRN (06:00)
[2019-08-10] MEDS ORDERED: ATORVASTATIN 80 MG TAB PO ONE (06:00)
[2019-08-10] MEDS ORDERED: SODIUM CHLORIDE 0.9% 1,000 ML in EMPTY BAG 1 BAG IV ONE (06:00)
[2019-08-10] MEDS ORDERED: ALPRAZolam 0.25 MG TAB PO PRN (06:00)
[2019-08-10 06:30] LABS: Glucose,Whole Blood 87 mg/dL (75-99)
[2019-08-10] MEDS: INSULIN DETEMIR (LEVEMIR) 100 UNIT/ML SYR SQ SCH (06:30)
[2019-08-10 07:14] LABS: Basophils % (A) 0 %; Eosinophils # (A) 0.2 k/uL (0-0.7); Eosinophils % (A) 3 %; HCT 32.9 % (39.0-53.0); HGB 10.5 gm/dL (13.0-17.5); Lymphocytes # (A) 1.3 k/uL (1.0-4.8); Lymphocytes % (A) 17 %; MCH 30.1 pg (25.0-35.0); Mean Platelet Volume 8.3; Monocytes # (A) 0.5 k/uL (0-1.0); Monocytes % (A) 7 %; Neutrophils # (A) 5.3 k/uL (1.3-7.7); Neutrophils % (A) 71 %; Platelet Count 153 k/uL (150-450); RDW 13.3 % (11.5-15.5); WBC 7.5 k/uL (3.8-10.6)
[2019-08-10 07:23] LABS: Albumin 3.4 g/dL (3.5-5.0); Total Bilirubin 0.7 mg/dL (0.2-1.3); Total Protein 6.5 g/dL (6.3-8.2)
[2019-08-10] MEDS ORDERED: fentaNYL (PF) 50 MCG/ML 2 ML AMP ONE (08:06)
[2019-08-10] MEDS: BENZOCAINE SPRAY 1 CAN TOPICAL ONE ×2 (08:53→08:58)
[2019-08-10] MEDS ORDERED: IV FLUID CONTINUATION 1,000 ML IV ONE ×2 (08:54→09:21)
[2019-08-10] MEDS ORDERED: MIDAZOLAM 2 MG/2 ML VIAL IVP ONE (08:58)
[2019-08-10] MEDS ORDERED: fentaNYL (PF) 50 MCG/ML 2 ML AMP IVP ONE (08:58)
[2019-08-10] MEDS ORDERED: LIDOCAINE 1% INJ 10MG/ML (20 ML MDV) ONE (09:07)
[2019-08-10] MEDS ORDERED: LIDOCAINE 1% INJ 10MG/ML (20 ML MDV) SQ ONE (09:21)
[2019-08-10 09:24] VITALS: RESP 16
[2019-08-10] MEDS ORDERED: IOPAMIDOL-370 100ML BTL INJ ONE (09:40)
[2019-08-10] MEDS: HEPARIN SODIUM,PORCINE 5,000 UNIT/ML 1 ML VIAL SQ SCH (09:55)
--- NOTE | 2019-08-10 10:23 | P.PN ---
Subjective 08/07. This is a 78-year-old male, patient of Dr. Lara, with a medical history of diabetes, GERD, and Hyperlipidemia. Patient reports over the last week he has been feeling a lot more fatigued, run down, and running a low grade fever. He was evaluated as outpatient and diagnosed with pleurisy. He then developed episodes of dizziness with worsening symptoms. He went to [employer] yesterday and became diaphoretic with chest discomfort, EMS was called and patient was transferred to the hospital. While in the emergency department chest x-ray was performed that showed mild right upper lobe pneumonia. D.Dimer was elevated at 1.11, CTA was then ordered that showed patchy pneumonia in the right lung, atelectasis, thoracic aortic aneurysm, elevated right diaphragm, no evidence of pulmonary embolism. Troponin's have been elevated 0.046, 0.322, 0.397, 0.297. EKG showed sinus rhythm, without ST wave changes. He was started on Azithromycin 500mg along with Duonebs. Cardiology has been consulted, may need cardiac cath, will obtain an electrocardiogram. Vital signs are stable blood pressure 103/62, heart rate of 67, 98% on room air. He currently denies any cough, shortness of breath, palpitations, or chest pain. 08/08. Patient is evaluated at bedside today. He is resting in bed. Per cardiology recommendations, cardiac catheterization is sill on hold pending improvement of pneumonia of the right lung. Patient is being treated with oral azithromycin, IV ceftriaxone, and Duoneb treatments as needed. Echocardiogram completed yesterday reveals an EF of 60-65%, moderate concentric left ventricular hypertrophy, mildly enlarged right ventricle, left atrium moderately dilated, moderate aortic valve sclerosis, [id number] aortic regurgitation, severe aortic stenosis, moderate mitral regurgitation, mild tricuspid regurgitation, severe pulmonary hypertension, trace pulmonic regurgitation, peak/mean gradient across the aortic valve is 71.30mmHg/42.19 mmHg, and mildly thickened mitral valve leafs. Plan is to tentatively schedule patient for a cardiac catheterization and CARLOS tomorrow. Vital signs today are stable 97.9, remains afebrile, HR-86, BP-131/61, RR-16. Labs today include, hgb of 10.6, down from 11.6, continue on Subcutaneous heparin. Continue with accuchecks, patient maintained on levemir 40 units every . 08/09: Patient evaluated this morning. Patient undergoing CARLOS and cardiac catheterization this morning. He denies any chest pain, shortness of breath or cough. His pneumonia is stable, WBCs are normal at 7.5, Hgb 10.5, Hct 32.9, Cr1.0, BUN 17. He continues on Azithromycin 500mg daily along with Ceftriaxone 1gm daily. Blood cultures show no growth to date. He remains afebrile 97.9, blood pressure 130/61. heart rate 72, 97% no 3L nasal cannula. Accuchecks have been controlled and running between 190-80s, this morning was 83, maintained on Levemir 40units. Objective - Vital Signs Vital signs: Vital Signs Temp 97.9 F 08/10/19 08:00 Pulse 72 08/10/19 09:08 Resp 16 08/10/19 09:08 BP 130/61 08/10/19 09:08 Pulse Ox 97 08/10/19 09:08 Intake & Output 08/09/19 08/10/19 08/10/19 18:59 06:59 18:59 Intake Total 970 10 185 Balance 970 10 185 Weight 101 kg Intake: IV 10 185 Invasive Line 2 10 10 Oral 970 0 Other: Voiding Method Toilet Toilet # Voids 3 2 - Exam - Constitutional General appearance: cooperative, no acute distress - EENT Eyes: EOMI, PERRLA, normal appearance ENT: hearing grossly normal, normal oropharynx - Neck Neck: no lymphadenopathy, normal ROM, no rigidity, no stridor, no thyromegaly Thyroid: bilateral: normal size, negative: enlarged, nodule - Respiratory Respiratory: bilateral: CTA, negative: diminished, dullness, rales, rhonchi, wheezing - Cardiovascular Rhythm: regular Heart sounds: normal: S1, S2, systolic murmur - Gastrointestinal General gastrointestinal: no distended, no hepatomegaly, normal bowel sounds, no organomegaly, soft, no tenderness - Neurologic Neurologic: CNII-XII intact - Musculoskeletal Musculoskeletal: gait normal, generalized weakness, strength equal bilaterally, no right sided weakness, no left sided weakness - Psychiatric Psychiatric: A&O x's 3, appropriate affect, intact judgment & insight - Labs CBC & Chem 7: 08/10/19 06:46 08/10/19 06:46 Labs: Abnormal Lab Results - Last 24 Hours (Table) 08/09/19 08/09/19 08/09/19 Range/Units 11:36 16:51 20:15 RBC (4.30-5.90) m/uL Hgb (13.0-17.5) gm/dL Hct (39.0-53.0) % POC Glucose (mg/dL) 159 H 190 H 137 H (75-99) mg/dL Albumin (3.5-5.0) g/dL 08/10/19 08/10/19 Range/Units 06:46 06:46 RBC 3.50 L (4.30-5.90) m/uL Hgb 10.5 L (13.0-17.5) gm/dL Hct 32.9 L (39.0-53.0) % POC Glucose (mg/dL) (75-99) mg/dL Albumin 3.4 L (3.5-5.0) g/dL Microbiology - Last 24 Hours (Table) 08/07/19 19:45 Blood Culture - Preliminary Blood No Growth after 48 hours Assessment and Plan Plan: Assessment and Plan Plan: 1. Non-ST myocardial infarction. Serial troponins are elevated, cardiology on consult, sublingual nitro as needed, along with Nitro paste, and ASA 325mg daily, Echo completed; cardiac catheterization and CARLOS scheduled for today 2. Unstable angina. Cardiology on consult, continue Nitropaste along with sublingual nitro as needed and aspirin 3. Pneumonia. Azithromycin 500 mg daily, along with ceftriaxone and DuoNeb's, blood cultures obtained, no growth to date. 4. Diabetes mellitus. Will hold Metformin, continue on Levemir 40 units QAM 5. GERD. Continue on pantoprazole 40 mg daily along with famotidine 20 mg at at bedtime 6. Hyperlipidemia. Continue on Lipitor 10 mg at at bedtime. 7. DVT prophylaxis. SubQ Heparin 8. GI prophylaxix with pantoprazole 40mg daily 9. severe aortic stenosis, will plan for cardiac cath today along with CARLOS, may need TAVR The above impression and plan of care have been discussed and directed by signing physician. Mercy Gomez nurse practitioner acting as scribe for signing physician.
[2019-08-10 12:04] LABS: Glucose,Whole Blood 70 mg/dL (75-99)
--- NOTE | 2019-08-10 12:46 | CONS ---
CONSULTATION REFERRING PHYSICIAN: Dr. Lara/Dr. Mathias. INDICATION: Severe aortic stenosis and regurgitation. PROCEDURE NOTE: After obtaining informed consent, transesophageal echocardiogram is performed in left lateral position using an Omni plane probe. Local and IV sedation were obtained using Xylocaine spray 2 mg of Versed and fentanyl. The patient tolerated the procedure well without any obvious immediate complications. Patient received moderate conscious sedation. Total sedation time was 8 minutes. FINDINGS: 1. Aortic valve is a 3-leaflet valve, appears heavily calcified with severe restriction in leaflet mobility with a valve area of around 0.6-0.8 base cm. There is severe aortic regurgitation noted. Ascending aorta appears aneurysmally dilated measuring about 4.2 cm. Mitral valve is anatomically normal. There is moderate central mitral regurgitation noted. 2. There is mild tricuspid regurgitation noted. 3. Interatrial septum: There is no evidence of qnlx-jm-byeau shunt by color-flow Doppler. There is no evidence of mnplh-dq-twhg shunt by agitated saline contrast study. 4. Left ventricle has normal size and systolic function with an ejection fraction of 60%. Left atrium appears enlarged. Right atrium and right ventricle seen within normal limits. CONCLUSIONS: 1. Severe aortic stenosis secondary to heavily calcified bicuspid aortic valve. 2. Severe aortic regurgitation. 3. Moderate mitral regurgitation. 4. Normal LV systolic function. PLAN: Patient will undergo cardiac catheterization and will decide on whether the patient is to undergo surgical aortic valve replacement or TAVR. RENETTA / SIERRAN: [id number] /
[2019-08-10 13:19] VITALS: TEMP 97.9
--- NOTE | 2019-08-10 14:18 | CC ---
CARDIAC CATHETERIZATION REPORT Domenico is a 78-year-old gentleman with history is admitted to hospital with symptoms of shortness of breath and chest pain and has evidence of severe aortic stenosis. He underwent a transesophageal echo that shows severe aortic stenosis and regurgitation and dilated aortic root and was advised to undergo cardiac catheterization to prepare him for aortic valve replacement. PROCEDURE NOTE: After obtaining informed consent, left heart catheterization and coronary angiogram were performed via the right femoral artery using standard Yayo catheters. The patient tolerated the procedure well without any obvious immediate complications. A femoral angiogram was performed and Angio-Seal will be deployed for hemostasis. The patient received moderate conscious sedation. Total sedation time was 22 minutes. FINDINGS: HEMODYNAMICS: Central aortic pressure is 140/70 mm. Left ventriculogram is not performed. AORTOGRAM: Aortogram shows that the patient has a 3+ aortic regurgitation and the ascending aorta is aneurysmally dilated, measures almost 4.8 cm. This seems to be the poststenotic dilatation related to the aortic stenosis. ANGIOGRAPHIC DATA: LEFT MAIN CORONARY ARTERY: Left main coronary artery is a normal-sized vessel and is free of stenosis. Divides into left anterior descending coronary artery and circumflex coronary artery. LEFT ANTERIOR DESCENDING CORONARY ARTERY: LAD shows a mild atherosclerotic plaque in the proximal portion. CIRCUMFLEX CORONARY ARTERY shows mild plaque distally and proximally, but there are no focal hemodynamically significant lesions. RIGHT CORONARY ARTERY is a small nondominant vessel, shows mild atherosclerotic plaque. CONCLUSIONS: 1. Mild nonobstructive coronary artery disease. 2. Severe aortic stenosis and regurgitation. 3. Aneurysmal dilatation of the ascending aorta. PLAN: Patient will need aortic valve replacement. I am going to going to refer the patient to Dr. Ozuna and if he is not a candidate, I am going to refer him for TAVR. MMODL / IJN: [id number] /
[2019-08-10 14:25] VITALS: PULSE 71
[2019-08-10 16:04] VITALS: BP 137/71
[2019-08-10 16:57] LABS: Glucose,Whole Blood 142 mg/dL (75-99)
== END 2019-08-10 19:23 | disposition short-term general hospital (02) | DRG 280 ==
LOC: EC 16:35 → 3SCARD 18:55
PROVIDERS: ADMIT Family Medicine; ATTEND Family Medicine
PROC: B2111ZZ Fluoroscopy of Multiple Coronary Arteries using Low Osmolar Contrast (ICD-10-PCS; principal; 2019-08-10 08:30)
PROC: 4A023N7 Measurement of Cardiac Sampling and Pressure, Left Heart, Percutaneous Approach (ICD-10-PCS; principal; 2019-08-10 08:30)
DX: I21.4 Non-ST elevation (NSTEMI) myocardial infarction (principal); J18.9 Pneumonia, unspecified organism; I25.110 Atherosclerotic heart disease of native coronary artery with unstable angina pectoris; I27.20 Pulmonary hypertension, unspecified; I71.2 Thoracic aortic aneurysm, without rupture; E11.9 Type 2 diabetes mellitus without complications; E78.5 Hyperlipidemia, unspecified; I10 Essential (primary) hypertension; K21.9 Gastro-esophageal reflux disease without esophagitis; Z20.828 Contact with and (suspected) exposure to other viral communicable diseases; I08.3 Combined rheumatic disorders of mitral, aortic and tricuspid valves; Z79.84 Long term (current) use of oral hypoglycemic drugs; Z79.82 Long term (current) use of aspirin; Z79.899 Other long term (current) drug therapy; Z90.49 Acquired absence of other specified parts of digestive tract; Z82.49 Family history of ischemic heart disease and other diseases of the circulatory system; Z83.3 Family history of diabetes mellitus
CPT/HCPCS: 36415; 71046; 71275; 80053; 80061; 83735; 84484; 85025; 85379; 85610; 85730; 87040; 93005; 93306; 93312; 93320; 93325; 93454; 96361; 96365; 96366; 96367; 99285

== ENCOUNTER → 2019-10-18 | Outpatient (CLI) | payer MEDICARE ==
[2019-10-18 12:36] LABS: HCT 36.5 % (39.0-53.0); HGB 11.5 gm/dL (13.0-17.5); MCHC 31.5 g/dL (31.0-37.0); MCV 95.3 fL (80.0-100.0); Mean Platelet Volume 7.7; Platelet Count 167 k/uL (150-450); RBC 3.83 m/uL (4.30-5.90); RDW 14.2 % (11.5-15.5); WBC 7.1 k/uL (3.8-10.6)
[2019-10-18 20:06] LABS: African American GFR (CKD) 74.1 (60.0-200.0); Albumin 4.1 g/dL (3.80-4.90); Albumin/Globulin Ratio 1.41 (1.60-3.17); Anion Gap 8.8 mmol/L (4.00-12.00); Calcium 9.6 mg/dL (8.7-10.3); Carbon Dioxide 26.2 mmol/L (21.6-31.8); Chol/HDL Ratio 2.98; Globulin 2.9 g/dL (1.6-3.3); LDL Cholesterol,Calculated 103.4 mg/dL (0.0-131.0); Potassium 5.5 mmol/L (3.5-5.5); Total Bilirubin 0.7 mg/dL (0.2-1.2); VLDL Calculation 15.6 mg/dL (5.00-40.00)
== END | disposition home or self-care (01) ==
LOC: LABWHC1 10:55
PROVIDERS: ATTEND Internal Medicine Cardiovascular Disease
DX: E78.2 Mixed hyperlipidemia (principal); I35.9 Nonrheumatic aortic valve disorder, unspecified; Z95.2 Presence of prosthetic heart valve
CPT/HCPCS: 36415; 80053; 80061; 85027

== ENCOUNTER → 2024-04-02 | Outpatient (CLI) | payer MEDICARE ==
[2024-04-03 07:52] LABS: ALT 22 U/L (10-49); AST 33 U/L (14-35); Chol/HDL Ratio 3.33 Ratio; LDL Cholesterol,Calculated 105.3 mg/dL (0.0-131.0)
== END | disposition home or self-care (01) ==
LOC: LABWHC1 10:26
PROVIDERS: ATTEND Internal Medicine Cardiovascular Disease
DX: E78.2 Mixed hyperlipidemia (principal)
CPT/HCPCS: 36415; 80061; 84450; 84460